=== PATIENT | female | born 1935 | race Caucasian/White ===

== ENCOUNTER 2023-05-18 15:46 | Inpatient (IN) | payer MEDICARE ==
[~2023-05-18] VITALS: Ht 167.6 cm; Wt 65.1 kg
[~2023-05-18 15:46] MED LIST: TYLENOL EXTRA500 MG PO
[2023-05-18] MEDS ORDERED: DEPAKOTE SPRIN125 MG PO (19:08)
[2023-05-18] MEDS ORDERED: NAMENDA10 MG PO (19:08)
[2023-05-18] MEDS ORDERED: HYZAAR 100-12.1 EACH PO (19:08)
[2023-05-18] MEDS ORDERED: MELATONIN3 MG PO (19:10)
[2023-05-18] MEDS ORDERED: VISTARIL25 MG PO (19:11)
[2023-05-18] MEDS ORDERED: TRAMADOL HCL50 MG PO (19:12)
[2023-05-18] MEDS ORDERED: TOPROL XL50 M1 PO (19:12)
[2023-05-18] MEDS ORDERED: PRAVASTATIN SOD40 MG PO (19:13)
[2023-05-18] MEDS ORDERED: SENNA8.6 MG PO (19:14)
[2023-05-18] MEDS ORDERED: HYDROCHLOROTH12.5 M3 PO (19:16)
[2023-05-18 20:00] VITALS: BP 128/57
[2023-05-19 07:25] LABS: VITAMIN D, 25-HYDROXY 26.3 ng/mL (30-100)
[2023-05-19 07:26] LABS: VALPROIC ACID (DEPAKENE) 35.5 ug/ml (50-100)
[2023-05-19 08:00] VITALS: BP 124/61
[2023-05-19 20:00] VITALS: BP 129/66
[2023-05-20 08:00] VITALS: BP 136/61
[2023-05-20 20:00] VITALS: BP 103/76
[2023-05-21 09:06] VITALS: BP 152/83
[2023-05-21 20:00] VITALS: BP 115/63
[2023-05-22 08:00] VITALS: BP 167/80
[2023-05-22 20:00] VITALS: BP 122/70
[2023-05-23 08:00] VITALS: BP 152/62
[2023-05-23 20:00] VITALS: BP 144/68
[2023-05-24 08:46] VITALS: BP 113/59
[2023-05-24 09:59] VITALS: BP 132/80
[2023-05-24 20:00] VITALS: BP 142/75
[2023-05-25 08:12] VITALS: BP 128/78
[2023-05-26 09:03] VITALS: BP 130/69
[2023-05-26 20:00] VITALS: BP 113/72
[2023-05-27 06:27] LABS: BASO % 0.4 % (0.0-1.0); EOS # 0.2 10*3/uL (0.0-0.4); EOS % 2.1 % (1.0-4.0); HEMATOCRIT 37.3 % (37.0-47.0); LYMPH # 2.1 10*3/uL (1.3-4.4); LYMPH % 24.9 % (27.0-41.0); MEAN CORPUSCULAR HGB 30.9 pg (27.0-31.0); MEAN CORPUSCULAR HGB CONC 33.2 g/dl (33.0-37.0); MEAN PLATELET VOLUME 9.7 fl (9.6-12.3); MONO # 0.5 10*3/uL (0.1-1.0); MONO % 6.1 % (3.0-9.0); NEUT # 5.6 10*3/uL (2.3-7.9); NEUT % 66.1 % (47.0-73.0); PLATELET COUNT AUTOMATED 156 10*3/uL (130-400); RED BLOOD COUNT 4.01 10*6/uL (4.10-5.10); RED CELL DISTRI WIDTH 13.2 % (0-14.5); WHITE BLOOD COUNT 8.5 10*3/uL (4.8-10.8)
[2023-05-27 06:57] LABS: POTASSIUM 4.5 mmol/L (3.4-5.1)
[2023-05-27 07:27] VITALS: BP 136/78
[2023-05-27 08:49] LABS: TOTAL PROTEIN 6.8 gm/dL (6.0-8.0)
[2023-05-27 11:57] LABS: BILIRUBIN Negative (Negative); BLOOD Negative (Negative); CLARITY Clear (Clear); COLOR Yellow (Yellow); GLUCOSE Negative (Negative); KETONE Trace (Negative); LEUKO ESTERASE Negative (Negative); NITRITE Negative (Negative); PH 5.5 (4.5-8.0)
[2023-05-27 12:14] LABS: BACTERIA TRACE; MUCOUS 1+
[2023-05-27 20:00] VITALS: BP 130/76
[2023-05-28 07:55] LABS: BASO % 0.3 % (0.0-1.0); EOS % 0.3 % (1.0-4.0); HEMATOCRIT 40.6 % (37.0-47.0); LYMPH % 12.7 % (27.0-41.0); MEAN CELL VOLUME 91.9 fl (81.0-99.0); MEAN CORPUSCULAR HGB 30.3 pg (27.0-31.0); MONO # 0.1 10*3/uL (0.1-1.0); MONO % 1.4 % (3.0-9.0); NEUT # 6.6 10*3/uL (2.3-7.9); PLATELET COUNT AUTOMATED 169 10*3/uL (130-400); RED BLOOD COUNT 4.42 10*6/uL (4.10-5.10); RED CELL DISTRI WIDTH 13.2 % (0-14.5); WHITE BLOOD COUNT 7.7 10*3/uL (4.8-10.8)
[2023-05-28 08:00] VITALS: BP 180/86
[2023-05-28 08:25] LABS: POTASSIUM 4.3 mmol/L (3.4-5.1); TOTAL PROTEIN 7.2 gm/dL (6.0-8.0); VALPROIC ACID (DEPAKENE) 78.1 ug/ml (50-100)
[2023-05-28 12:30] VITALS: BP 192/90
[2023-05-28 15:05] VITALS: BP 162/90
[2023-05-28 18:08] VITALS: BP 136/68
[2023-05-29 07:35] VITALS: BP 125/58
[2023-05-29 10:03] LABS: BASO % 0.4 % (0.0-1.0); EOS # 0.1 10*3/uL (0.0-0.4); EOS % 1.5 % (1.0-4.0); HEMATOCRIT 38.1 % (37.0-47.0); LYMPH # 2.3 10*3/uL (1.3-4.4); LYMPH % 28.4 % (27.0-41.0); MEAN CELL VOLUME 93.6 fl (81.0-99.0); MEAN CORPUSCULAR HGB 29.7 pg (27.0-31.0); MEAN CORPUSCULAR HGB CONC 31.8 g/dl (33.0-37.0); MEAN PLATELET VOLUME 10.7 fl (9.6-12.3); MONO # 0.5 10*3/uL (0.1-1.0); MONO % 6.2 % (3.0-9.0); NEUT # 5.2 10*3/uL (2.3-7.9); NEUT % 63.1 % (47.0-73.0); PLATELET COUNT AUTOMATED 159 10*3/uL (130-400); RED BLOOD COUNT 4.07 10*6/uL (4.10-5.10); RED CELL DISTRI WIDTH 13.3 % (0-14.5); WHITE BLOOD COUNT 8.2 10*3/uL (4.8-10.8)
[2023-05-29 10:24] LABS: TOTAL PROTEIN 6.2 gm/dL (6.0-8.0)
[2023-05-29 18:00] LABS: BASO % 0.5 % (0.0-1.0); EOS # 0.1 10*3/uL (0.0-0.4); EOS % 1.6 % (1.0-4.0); HEMATOCRIT 39.2 % (37.0-47.0); LYMPH # 2.5 10*3/uL (1.3-4.4); LYMPH % 30.7 % (27.0-41.0); MEAN CELL VOLUME 92.9 fl (81.0-99.0); MEAN CORPUSCULAR HGB 30.6 pg (27.0-31.0); MEAN CORPUSCULAR HGB CONC 32.9 g/dl (33.0-37.0); MEAN PLATELET VOLUME 10.1 fl (9.6-12.3); MONO # 0.5 10*3/uL (0.1-1.0); MONO % 6.6 % (3.0-9.0); NEUT # 4.9 10*3/uL (2.3-7.9); NEUT % 60.4 % (47.0-73.0); PLATELET COUNT AUTOMATED 180 10*3/uL (130-400); RED BLOOD COUNT 4.22 10*6/uL (4.10-5.10); RED CELL DISTRI WIDTH 13.4 % (0-14.5); WHITE BLOOD COUNT 8.2 10*3/uL (4.8-10.8)
[2023-05-29 18:16] LABS: TOTAL PROTEIN 6.3 gm/dL (6.0-8.0)
[2023-05-29 20:00] VITALS: BP 114/62
== END 2023-05-30 00:32 | disposition short-term general hospital (02) | DRG 885 ==
LOC: 3N 15:46
PROVIDERS: Counselor Professional; Nurse Practitioner; Student in an Organized Health Care Education/Training Program; ADMIT Psychiatry & Neurology Psychiatry; ATTEND Psychiatry & Neurology Psychiatry
DX: F33.2 Major depressive disorder, recurrent severe without psychotic features (principal); N18.32 Chronic kidney disease, stage 3b; N30.00 Acute cystitis without hematuria; F02.818 Dementia in other diseases classified elsewhere, unspecified severity, with other behavioral disturbance; F63.9 Impulse disorder, unspecified; D64.9 Anemia, unspecified; E87.8 Other disorders of electrolyte and fluid balance, not elsewhere classified; E80.6 Other disorders of bilirubin metabolism; M85.88 Other specified disorders of bone density and structure, other site; G30.9 Alzheimer's disease, unspecified; I12.9 Hypertensive chronic kidney disease with stage 1 through stage 4 chronic kidney disease, or unspecified chronic kidney disease; E78.5 Hyperlipidemia, unspecified; Z66 Do not resuscitate; Z51.5 Encounter for palliative care; Z88.8 Allergy status to other drugs, medicaments and biological substances